=== PATIENT | female | born 1975 | race Caucasian/White ===

== ENCOUNTER 2019-06-28 13:50 | Emergency (ER) | payer BC, MEDICAID ==
[~2019-06-28] VITALS: Ht 160 cm; Wt 90.7 kg
--- NOTE | 2019-06-28 14:03 | ED Lower Extremity ---
General Stated Complaint: R ANKLE PAIN Source: patient Exam Limitations: no limitations History of Present Illness Date Seen by Provider: Jun 28, 2019 Time Seen by Provider: 14:01 Initial Comments Patient stepped off a curb on Sunday06/25/19 and twisted the ankle, she is not sure in what direction she twisted the ankle. However, she's had persistent swelling around the ankle joint itself since then. No bruising or redness. She's been weightbearing since then. Onset: last week Severity: moderate Pain/Injury Location: right ankle Method of Injury: fell Modifying Factors: Worse With Movement Allergies and Home Medications Allergies Coded Allergies: No Known Drug Allergies (Verified Allergy, Unknown, 11/16/07) Patient Home Medication List Home Medication List Reviewed: Yes Review of Systems Constitutional: see HPI EENTM: see HPI Respiratory: no symptoms reported Cardiovascular: no symptoms reported Genitourinary: no symptoms reported Musculoskeletal: see HPI Skin: no symptoms reported Psychiatric/Neurological: No Symptoms Reported Past Aiyjnro-Seslcm-Sgjmla Hx Patient Social History Recent Foreign Travel: No Contact w/Someone Who Travel: No Physical Exam Vital Signs Vital Signs - First Documented 06/28/19 13:56 Temp 98.2 Pulse 88 Resp 20 B/P (MAP) 160/99 (119) Pulse Ox 96 O2 Delivery Room Air Capillary Refill : Height, Weight, BMI Height: '" Weight: lbs. oz. kg; BMI Method: General Appearance: WD/WN, no apparent distress HEENT: PERRL/EOMI, normal ENT inspection Respiratory: no respiratory distress, no accessory muscle use Hips: bilateral hip non-tender, bilateral hip normal inspection, bilateral hip normal range of motion Legs: bilateral leg non-tender, bilateral leg normal inspection, bilateral leg normal range of motion Knees: bilateral knee non-tender, bilateral knee normal inspection, bilateral knee normal range of motion Ankles: right ankle pain, right ankle soft tissue tenderness, right ankle swelling, right ankle other (strong dorsalis pedis pulse, normal sensation and ability to wiggle her toes) Feet: bilateral foot non-tender, bilateral foot normal inspection, bilateral foot normal range of motion Neurologic/Psychiatric: alert, normal mood/affect, oriented x 3 Skin: normal color, warm/dry Progress/Results/Core Measures Results/Orders My Orders Orders - SEBASTIEN HARGROVE APRN Ankle, Right, 3 Views (06/28/19 14:00) Vital Signs/I&O 06/28/19 13:56 Temp 98.2 Pulse 88 Resp 20 B/P (MAP) 160/99 (119) Pulse Ox 96 O2 Delivery Room Air Departure Communication (Admissions) I directly palpated the area of question on x-ray, the anterior aspect of the tibiotalar joint. There is no tenderness whatsoever here, her only complaint tenderness is around the medial malleolus. She is mostly concerned just because of the swelling Impression Primary Impression: Ankle sprain Qualified Codes: S93.401A - Sprain of unspecified ligament of right ankle, initial encounter Disposition: HOME, SELF-CARE Condition: Stable Departure-Patient Inst. Decision time for Depature: 14:02 Referrals: NO,LOCAL PHYSICIAN (PCP/Family) Primary Care Physician Patient Instructions: Ankle Sprain (DC) Add. Discharge Instructions: 1. Return to ER for any concerns 2. Follow-up with your doctor next week Keep the foot elevated as much as possible. SEBASTIEN HARGROVE APRN Jun 28, 2019 14:03
[2019-06-28 15:06] VITALS: BP 0/0
--- NOTE | 2019-06-28 15:06 | NUR ---
PT DISCHARGED TO HOME W/ MARYANNE WRAP ET INSTR. PT TO ICE, ELEVATE, F/U W/ PCP ET RETURN IF SYMPTOMS CHANGE OR GET WORSE. UNDERSTANDING VOICED. NO QUESTIONS.
--- NOTE | 2019-06-28 15:11 | Diagnostic Imaging Report ---
EXAMINATION: Right ankle radiographs, 3 views. COMPARISON: None. HISTORY: 44-year-old female, injury. Right ankle pain and swelling. FINDINGS: There is a well-corticated ossification adjacent to the distal aspect of the medial malleolus which is compatible with sequela of remote prior injury or an accessory ossicle. The alignment of the ankle mortise is unremarkable. There is no identified tibiotalar joint effusion. There is a somewhat ill-defined area of ossification dorsally located near the dorsal aspect of the talus at the anterior aspect of the tibiotalar joint. This is of uncertain exact age. There is a small calcaneal heel spur. There is very minimal degenerative type enthesopathy at the Achilles tendon insertion. There is no identified tibiotalar joint effusion. There is soft tissue swelling adjacent to the lateral and medial malleoli. IMPRESSION: 1. Small area of ossification adjacent to the dorsal aspect of the talus at the anterior aspect of the tibiotalar joint of uncertain exact age. Correlation for focal pain at this exact site may potentially be helpful. 2. Well-corticated long-standing ossification adjacent to the tip of the medial malleolus which is compatible with sequela of remote prior injury and/or accessory ossicle. 3. Soft tissue swelling adjacent to the lateral and medial malleoli. 4. Normal alignment of the ankle mortise. Dictated by: Dictated on workstation # [id number]
== END 2019-06-28 15:06 | disposition home or self-care (01) ==
LOC: EDUNIT# 13:50 → ER 13:52
DX: S93.401A Sprain of unspecified ligament of right ankle, initial encounter (principal); X50.1XXA Overexertion from prolonged static or awkward postures, initial encounter
CPT/HCPCS: 73610